=== PATIENT | male | born 1995 | race Caucasian/White ===

== ENCOUNTER 2016-11-18 21:08 | Emergency (ER) | payer OTHER ==
[2016-11-18 21:26] VITALS: RESP 18; TEMP 97.5
--- NOTE | 2016-11-18 21:32 | EDPHY ---
H & P Stated Complaint: N,V and dizziness Time Seen by Provider: 11/18/16 21:32 HPI/ROS: CHIEF COMPLAINT: Nausea, vomiting, lightheadedness HISTORY OF PRESENT ILLNESS: The patient presents to the ED with a 1 day history of nausea, vomiting and lightheadedness. Symptoms began after having a fair amount of alcohol with dinner this evening. The patient has no significant past medical history. The patient denies any chest pain or shortness of breath. He reports multiple episodes of vomiting this afternoon. The patient takes no prescription medications. He denies any recreational drug use. The patient denies any history of recent fever, diarrhea or other infectious symptoms. REVIEW OF SYSTEMS: A comprehensive 10 point review of systems is otherwise negative aside from elements mentioned in the history of present illness. Source: Patient Exam Limitations: No limitations - Personal History Current Tetanus/Diphtheria Vaccine: Yes Current Tetanus Diphtheria and Acellular Pertussis (TDAP): Yes - Medical/Surgical History Hx Asthma: No Hx Chronic Respiratory Disease: No Hx Diabetes: No Hx Cardiac Disease: No Hx Renal Disease: No Hx Cirrhosis: No Hx Alcoholism: No Hx HIV/AIDS: No Hx Splenectomy or Spleen Trauma: No Other PMH: NO PMH - Social History Smoking Status: Never smoked - Physical Exam Exam: General Appearance: Alert, no distress Eyes: Pupils equal and round no pallor or injection ENT, Mouth: Mucous membranes moist Respiratory: There are no retractions, lungs are clear to auscultation Cardiovascular: Regular rate and rhythm Gastrointestinal: Abdomen is soft and nontender, no masses, bowel sounds normal Neurological: A&O, normal motor function, normal sensory exam, normal cranial nerves Skin: Warm and dry, no rashes Musculoskeletal: Neck is supple nontender Extremities: symmetrical, full range of motion Constitutional: Initial Vital Signs Temperature (C) 36.4 C 11/18/16 21:24 Heart Rate 76 11/18/16 21:24 Respiratory Rate 18 11/18/16 21:24 Blood Pressure 112/69 11/18/16 21:24 O2 Sat (%) 96 11/18/16 21:24 O2 Delivery Mode Room Air Allergies/Adverse Reactions: penicillin G Allergy (Verified 11/18/16 21:26) Home Medications: Medication Instructions Recorded NK [No Known Home Meds] 11/18/16 Medical Decision Making - Diagnostics EKG Interpretation: EKG: Complete interpretation has been separately recorded in the [facility] archive. Summary impression: Sinus rhythm ED Course/Re-evaluation: The patient had an IV established. The patient received 1 L of normal saline. He received 4 mg of IV Zofran. Given the patient's complaints of lightheadedness a EKG was ordered. Patient's EKG demonstrates no evidence of ischemia. His serum chemistries demonstrate a slightly decreased CO2 of 18. The patient's CBC is within normal limits. I re-evaluated the patient at 10:45 p.m.. He states he is now feeling much better. He denies any nausea or vomiting. His sensation of lightheadedness and presyncope has resolved. Discussion: I feel the patient presents to the ED after experiencing a vasovagal type episode in the setting of dehydration and alcohol use. The patient has responded to IV fluids and is feeling much better. The patient will be discharged home in stable condition with customary aftercare instructions and return precautions. Differential Diagnosis: Differential diagnosis considered includes dehydration, metabolic abnormality, arrhythmia, anemia, alcohol intoxication - Data Points Laboratory Results: Laboratory Results 11/18/16 21:50 11/18/16 21:50 11/18/16 11/18/16 21:50 21:50 WBC 9.81 10^3/uL H 10^3/uL (3.80-9.50) RBC 5.10 10^6/uL 10^6/uL (4.40-6.38) Hgb 15.5 g/dL g/dL (13.7-17.5) Hct 44.0 % % (40.0-51.0) MCV 86.3 fL fL (81.5-99.8) MCH 30.4 pg pg (27.9-34.1) MCHC 35.2 g/dL g/dL (32.4-36.7) RDW 12.4 % % (11.5-15.2) Plt Count 246 10^3/uL 10^3/uL (150-400) MPV 9.2 fL fL (8.7-11.7) Neut % (Auto) 67.4 % % (39.3-74.2) Lymph % (Auto) 22.7 % % (15.0-45.0) [place] % (Auto) 6.7 % % (4.5-13.0) Eos % (Auto) 2.3 % % (0.6-7.6) Baso % (Auto) 0.4 % % (0.3-1.7) Nucleat RBC Rel Count 0.0 % % (0.0-0.2) Absolute Neuts (auto) 6.60 10^3/uL H 10^3/uL (1.70-6.50) Absolute Lymphs (auto) 2.23 10^3/uL 10^3/uL (1.00-3.00) Absolute Monos (auto) 0.66 10^3/uL 10^3/uL (0.30-0.80) Absolute Eos (auto) 0.23 10^3/uL 10^3/uL (0.03-0.40) Absolute Basos (auto) 0.04 10^3/uL 10^3/uL (0.02-0.10) Absolute Nucleated RBC 0.00 10^3/uL 10^3/uL (0-0.01) Immature Gran % 0.5 % % (0.0-1.1) Immature Gran # 0.05 10^3/uL 10^3/uL (0.00-0.10) Sodium 141 mEq/L mEq/L (134-144) Potassium 4.1 mEq/L mEq/L (3.5-5.2) Chloride 108 mEq/L mEq/L (97-110) Carbon Dioxide 18 mEq/l L mEq/l (22-31) Anion Gap 15 mEq/L mEq/L (8-16) BUN 12 mg/dL mg/dL (7-23) Creatinine 0.8 mg/dL mg/dL (0.7-1.3) Estimated GFR > 60 Glucose 95 mg/dL mg/dL (70-100) Calcium 9.9 mg/dL mg/dL (8.5-10.4) Medications Given: Discontinued Medications Sodium Chloride (Ns) 1,000 mls @ 0 mls/hr IV EDNOW ONE; Wide Open PRN Reason: Protocol Stop: 11/18/16 21:33 Last Admin: 11/18/16 21:50 Dose: 1,000 mls Ondansetron HCl (Zofran) 4 mg IVP EDNOW ONE Stop: 11/18/16 21:33 Last Admin: 11/18/16 21:50 Dose: 4 mg Departure - Departure Disposition: Home, Routine, Self-Care Clinical Impression: Dehydration Condition: Good Instructions: Dehydration (ED) Additional Instructions: 1. Please return to the emergency department for any chest pain, palpitations, worsening symptoms or other concerns. 2. Avoid excessive consumption of alcohol when traveling at altitude. Be sure to increase your fluid intake as dehydration likely contributed to your symptoms today. Referrals: NONE *PRIMARY CARE P,. [Primary Care Provider] - As per Instructions
[2016-11-18] MEDS: NS 1,000 ML IV ONE ×2 (21:50→22:46)
[2016-11-18] MEDS: ONDANSETRON 4 MG/2 ML VIAL IVP ONE (21:50)
[2016-11-18 21:57] LABS: % IMMATURE GRANULYOCYTES 0.5 % (0.0-1.1); ABSOLUTE IMMATURE GRANULOCYTES 0.05 10^3/uL (0.00-0.10); ADD DIFF? NO; ADD MORPH? NO; ADD SCAN? NO; ATYPICAL LYMPHOCYTE FLAG 0 (0-99); FRAGMENT RBC FLAG 0 (0-99); HEMOGLOBIN 15.5 g/dL (13.7-17.5); LEFT SHIFT FLG 0 (0-99); LIPEMIA HEMOLYSIS FLAG 90 (0-99); MEAN CELL HEMOGLOBIN 30.4 pg (27.9-34.1); MEAN CELL HEMOGLOBIN CONCENTR. 35.2 g/dL (32.4-36.7); MEAN CELL VOLUME 86.3 fL (81.5-99.8); MEAN PLATELET VOLUME 9.2 fL (8.7-11.7); PLATELET CLUMPS FLAG 10 (0-99); PLATELET COUNT 246 10^3/uL (150-400); RED CELL DISTRIBUTION WIDTH 12.4 % (11.5-15.2)
--- NOTE | 2016-11-18 22:04 | CPEKG ---
Heart Rate: 60 RR Interval: 1000 P-R Interval: 168 QRSD Interval: 118 QT Interval: 432 QTC Interval: 432 P Springer: 50 QRS Springer: 53 T Wave Springer: 40 EKG Severity - ABNORMAL ECG - EKG Impression: SINUS RHYTHM Electronically Signed By: Kalen Shaver 18-Nov-2016 22:06:11
[2016-11-18 22:32] LABS: ANION GAP 15 mEq/L (8-16); CALCIUM 9.9 mg/dL (8.5-10.4); CARBON DIOXIDE 18 mEq/l (22-31); CHLORIDE 108 mEq/L (97-110); CREATININE 0.8 mg/dL (0.7-1.3); GLOMERULAR FILTRATION RATE > 60; GLUCOSE 95 mg/dL (70-100); POTASSIUM 4.1 mEq/L (3.5-5.2); SODIUM 141 mEq/L (134-144)
[2016-11-18 23:04] VITALS: BP 114/68; PULSE 69; O2SAT 98
== END 2016-11-18 23:03 | disposition home or self-care (01) ==
DX: E86.0 Dehydration (principal)
CPT/HCPCS: 96374; J2405